=== PATIENT | female | born 1980 | race Caucasian/White ===

== ENCOUNTER 2016-11-14 18:53 | Emergency (ER) | payer OTHER ==
[~2016-11-14] VITALS: Ht 162.6 cm; Wt 124.7 kg
[2016-11-14 19:00] VITALS: BP 145/105; PULSE 84; RESP 20; TEMP 98.5; O2SAT 100
--- NOTE | 2016-11-14 19:43 | NUR ---
Patient to ER bed 6 to gown for evaluation. Side rails up. Report given to BALJINDER Blake.
--- NOTE | 2016-11-14 19:50 | NUR ---
Patient came in the ER accompanied by significant other with a complaint of bleeding at the incision on the mid lower abdomen S/P Hernia repair and cyst removal a weeka ago. No acute distress or SOB noted. Patient has pain but she has medications at home and wanted to be helped with the bleeding. Denies n/v/d or headache.
--- NOTE | 2016-11-14 20:12 | NUR ---
ER Dr. Bates at bedside examining patient.
--- NOTE | 2016-11-14 20:18 | NUR ---
Abdominal pads and abdominal binder applied with EMT. No other compaints mentioned by the patient.
[2016-11-14 20:23] VITALS: BP 139/85; PULSE 78; RESP 19; TEMP 97.8; O2SAT 98
--- NOTE | 2016-11-14 20:23 | NUR ---
Patient given written and verbal discharge instructions and verbalizes understanding. Patient in stable condition. No acute distress or SOB noted upon discharge. ID arm band removed. Opportunity for questions provided and answered.
== END 2016-11-14 20:23 | disposition home or self-care (01) ==
LOC: SED 18:53
DX: Z48.01 Encounter for change or removal of surgical wound dressing (principal); L76.22 Postprocedural hemorrhage of skin and subcutaneous tissue following other procedure; Z90.49 Acquired absence of other specified parts of digestive tract
CPT/HCPCS: 99281

== ENCOUNTER 2016-12-21 22:16 | Emergency (ER) | payer OTHER ==
[~2016-12-21] VITALS: Ht 170.2 cm; Wt 124.7 kg
[2016-12-21 22:18] VITALS: BP_SYST 142
--- NOTE | 2016-12-21 22:18 | NUR ---
Placed to bed. Report recieved from Greg GALE. Vital signs within normal range. Will assume care.
--- NOTE | 2016-12-21 22:20 | NUR ---
ED MD Bates at bedside for medical evaluation.
--- NOTE | 2016-12-21 22:21 | NUR ---
Patient arrived to ED a/o x 4 with c/o sharp lower ABD pain 8/10 since yesterday. Patient states she arose in the morning to new onset of pain. Pain is localized to the RLQ. Hx. of hernia surgery and cyst removal. Denies N/V. Denies fever. Last BM this morning. No pain on palpation. No distention noted. Does not appear in immediate distress at this time. Will continue to monitor.
[2016-12-21 23:25] LABS: BILIRUBIN,URINE NEGATIVE (NEGATIVE); CLARITY/URINE CLEAR (CLEAR); COLOR,URINE YELLOW (YELLOW); GLUCOSE,URINE NEGATIVE (NEGATIVE); KETONES,URINE NEGATIVE (NEGATIVE); LEUKOCYTE ESTERASE ,URINE NEGATIVE (NEGATIVE); NITRITE, URINE NEGATIVE (NEGATIVE); PH,URINE 6.5 (5.0-8.0); PROTEIN URINE NEGATIVE (NEGATIVE); UROBILINOGEN,URINE 0.2 (0.2-1.0)
[2016-12-21 23:30] LABS: BLOOD, URINE TRACE (NEGATIVE)
[2016-12-21 23:43] LABS: BACTERIA,URINE FEW /HPF (None Seen); RBC,URINE 0-3 /HPF (0-3); WBC,URINE 0-3 /HPF (0-3)
[2016-12-22] MEDS ORDERED: KETOROLAC TROMETHAMINE 30 MG VIAL IVP ONE (00:15)
--- NOTE | 2016-12-22 00:32 | NUR ---
Patient transported off unit via gurney for CT by radiology staff.
--- NOTE | 2016-12-22 01:00 | NUR ---
ED MD Bates at bedside with patient for reassessment.
[2016-12-22 01:17] VITALS: BP_SYST 132
--- NOTE | 2016-12-22 01:17 | NUR ---
Patient given written and verbal discharge instructions and verbalizes understanding. ER MD discussed with patient the results and treatment provided. Patient in stable condition. ID arm band removed. IV catheter removed intact and dressing applied, no active bleeding. No Rx given. Patient educated on pain management and to follow up with PMD. Pain Scale 2/10.Opportunity for questions provided and answered.
== END 2016-12-22 01:17 | disposition home or self-care (01) ==
LOC: SED 22:16
DX: R10.31 Right lower quadrant pain (principal)
CPT/HCPCS: 74176; 81000; 81025; 96374; 99285; J1885

== ENCOUNTER 2017-07-27 13:04 | Emergency (ER) | payer OTHER ==
[~2017-07-27] VITALS: Ht 172.7 cm; Wt 131.1 kg
[2017-07-27 14:02] VITALS: BP_SYST 157
--- NOTE | 2017-07-27 14:11 | NUR ---
Patient triaged and placed in waiting room. VSS and patient appears in no acute distress at this time. Accompanied by FAMILY, awaiting available bed, and MD notified of need for MSE.
[2017-07-27 17:00] VITALS: BP_SYST 145
--- NOTE | 2017-07-27 18:55 | NUR ---
Pt informed staff that she would be leaving, informed to wait for MD, pt refused to wait. Dr Mathis is aware
== END 2017-07-27 18:52 | disposition left against medical advice (07) ==
LOC: SED 13:04
DX: O26.891 Other specified pregnancy related conditions, first trimester (principal); Z3A.11 11 weeks gestation of pregnancy; Z53.21 Procedure and treatment not carried out due to patient leaving prior to being seen by health care provider
CPT/HCPCS: 36415; 81025; 84702-TC; 99283